=== PATIENT | male | born 1970 | race Caucasian/White ===

== ENCOUNTER 2017-12-29 12:33 | Emergency (ER) | payer OTHER, SELFPAY ==
[2017-12-29 12:42] VITALS: BP 149/97; PULSE 92; RESP 16; TEMP 36.9; O2SAT 96; BMI 24.4
--- NOTE | 2017-12-29 12:52 | RAD_ITS ---
STUDY: X-RAY CHEST REASON FOR EXAM: Male, 47 years old. Chest pain. TECHNIQUE: Single PA view of the chest. COMPARISON: None. FINDINGS: Hyperinflation. The lungs are clear. There is no demonstrated pleural abnormality. Normal size heart. Normal mediastinum and lashae. Normal visualized pulmonary arteries. Normal visualized aortic arch and descending thoracic aorta. Normal visualized thoracic spine. Normal visualized ribs, clavicles, and shoulders. There is no demonstrated abnormality of the visualized soft tissue structures of the upper abdomen. RAD/Chest 1 View (Portable) IMPRESSION: Normal x-ray examination of the chest. Electronically Signed: Vicente Pacheco MD at 13:06 EDT Tel [phone], Service support ,
--- NOTE | 2017-12-29 12:52 | EKG12_ITS ---
Test Reason : PALPS/CP Blood Pressure : / mmHG Vent. Rate : 092 BPM Atrial Rate : 092 BPM P-R Int : 136 ms QRS Dur : 086 ms QT Int : 340 ms P-R-T Axes : 078 073 067 degrees QTc Int : 420 ms Normal sinus rhythm Normal ECG Confirmed by PANCHO PHILLIPS, ANKUSH ([id number]), newspaper managing editor NANNETTE GRIJALVA ([id number]) on 01/02/2018 2:44:17 PM Referred By: IVELISSE/TRAVIS Confirmed By:ANKUSH DELEON MD
[2017-12-29 13:21] LABS: Absolute Lymphocyte Count 1.45 X10^3/ul (0.83-4.51); Absolute Neutrophil Count 4.7 X10^3/uL (2.0-7.7); Basophil# 0.03 X10^3/uL; Basophil% 0.4 % (0-1); Eosinophil# 0.13 X10^3/uL; Eosinophils% 1.9 % (0-5); Hematocrit 45.8 % (40-54); Hemoglobin 16.7 g/dl (13.0-16.5); Lymphocyte # 1.45 X10^3/ul (4.0); Lymphocyte % 20.7 % (19-41); Mean Corp Hgb Conc 36.5 g/gl (32-36); Mean Corpuscular Hgb 30.9 pg (27.0-32.0); Mean Corpuscular Volume 84.7 fL (80-94); Mean Platelet Vol. 9.7 fl (6.2-12.0); Monocyte# 0.71 X10^3/uL; Monocyte% 10.1 % (0-10); Neutrophil # 4.69 X10^3/uL (2.7-7.7); Neutrophil % 66.9 % (47-70); Platelet Count 226 K/mm3 (150-450); RBC Distribution Width CV 12.7 % (11.6-14.6); Red Blood Count 5.41 M/mm3 (4.6-6.2)
[2017-12-29 13:23] LABS: POSITIVE COUNT NO; POSITIVE DIFFERENTIAL NO; POSITIVE MORPHOLOGY NO
[2017-12-29 13:27] LABS: Anion Gap 7 (5-15); BUN 17 mg/dL (7-18); Calcium,Total 8.9 mg/dL (8.5-10.1); Chloride 104 mmol/L (98-107); Creatinine, Serum 1.21 mg/dL (0.70-1.30); EST Glomerular Filtration Rate 69 mL/min (>60); Est Glom Filt Rate - Afr Amer 83 mL/min (>60); Estimated Creatinine Clearance 83.73 ml/min; Glucose 133 mg/dL (74-106); Potassium 3.8 mmol/L (3.5-5.1); Sodium Level 138 mmol/L (136-145)
[2017-12-29 14:34] VITALS: BP 144/89; PULSE 80; RESP 18; O2SAT 95
--- NOTE | 2017-12-29 15:08 | EKG12_ITS ---
Test Reason : REPEAT Blood Pressure : / mmHG Vent. Rate : 080 BPM Atrial Rate : 080 BPM P-R Int : 140 ms QRS Dur : 088 ms QT Int : 368 ms P-R-T Axes : 071 067 053 degrees QTc Int : 424 ms Normal sinus rhythm Normal ECG Confirmed by PANCHO PHILLIPS, ANKUSH ([id number]), scientific editor NANNETTE GRIJALVA ([id number]) on 01/02/2018 2:44:46 PM Referred By: HERNAN Confirmed By:ANKUSH DELEON MD
--- NOTE | 2017-12-29 15:12 | NURSING ---
NO OLD EKGS
[2017-12-29 15:20] VITALS: BP 134/83; PULSE 79; RESP 14; O2SAT 95
--- NOTE | 2017-12-29 15:30 | ED.VISSUMM ---
- ER Visit Summary Date of Service: 12/29/17 Chief Complaint: Chest pain History of Present Illness: The patient is a 47 M presents to the emergency department with chest pain. Patient states that he has been struggling with postconcussive syndrome since June. He states that because of that, he will get headaches almost daily. He states that he was off work yesterday and went back today. He feels like he overdid it. He states that he began to have palpitations and felt as if his heart was racing. He states that he had some tightness in his central chest. He states this is a normal headache. He denies any fevers or chills. He denies any visual change. He has no history of cardiovascular disease. Physical Examination: Vital signs reviewed General: Well-nourished, well-developed Head: Normocephalic, atraumatic Eyes: Pupils equal and reactive, extraocular muscles intact Neck, supple, no lymphadenopathy Heart: Regular rate and rhythm Respiratory: No distress, clear bilaterally Abdomen: Soft, nontender, nondistended, no peritoneal signs Back: Nontender Extremities: Nontender, no edema, no cords Skin: Normal color no rash Neuro: Alert and oriented, no focal or lateralizing deficits Test Results: [] Emergency Department Course and Treatment: The patient presents with chest pain and palpitations. He does feel like this is all related to his postconcussive syndrome. Initial EKG shows no acute ischemic change. His initial cardiac enzymes were negative. The patient has a heart score of 1. He did agree to a repeat cardiac enzymes and repeat EKG. These are both unchanged. Patient was given fluids as he did not want any medication. He then agreed to Toradol. At this time, given his low heart score and 2 negative enzymes along with 2 unremarkable EKGs, I do feel that he is safe for further outpatient workup. The bulk of his symptoms were related to palpitations. The patient will be discharged to continue follow-up with both his neurologist and his primary care. Treatment Plan: [] Disposition: Discharge Impression: 1. Chest pain with palpitations 2. Headache-chronic This note was generated with [employer] software. It may contain incorrect words, spelling, and punctuation that were not noted in review of the chart prior to signing ED Disposition - Plan for ED Patient: Chief Complaint: Palpitations Instructions: ED Palpitations Referrals: Maxim Sanders DO [Primary Care Provider] -
[2017-12-29] MEDS: 0.9% Normal Saline 1,000 ML 999 ML IV (15:33)
[2017-12-29] MEDS: Ketorolac 30 MG/ML Syringe IV (16:21)
[2017-12-29 17:18] VITALS: BP 120/82; PULSE 65; RESP 14; O2SAT 95
== END 2017-12-29 17:19 | disposition home or self-care (01) ==
LOC: ED 15:37
PROVIDERS: Emergency Provider Emergency Medicine; Family Provider Family Medicine; PCP Family Medicine
DX: R07.9 Chest pain, unspecified (principal); R00.2 Palpitations; R51 Headache
CPT/HCPCS: 71045; 80048; 84484; 85025; 93005; 99285; J7030; A4216

== ENCOUNTER → 2018-07-31 10:52 | Outpatient (CLI) | payer OTHER, SELFPAY ==
--- NOTE | 2018-07-31 11:00 | MRI_ITS ---
STUDY: MRI BRAIN WITH AND WITHOUT CONTRAST REASON FOR EXAM: Male, 47 years old. HEADACHES, MULTIPLE CONCUSSIONS. TECHNIQUE: Standardized multiplanar fat and water weighted pulse sequences were obtained. 9 ml of Gadavist contrast material was administered intravenously for the contrast portion of the examination. COMPARISON: CT dated March 31, 2017 FINDINGS: Normal size of the ventricles and extra-axial spaces for the patient's age. Normal white matter tracts of the supratentorial brain. Normal bilateral basal ganglia. Normal thalami. There is no extra-axial fluid accumulation. Normal flow voids within the major intracranial circulation suggesting patency by spin echo criteria. Normal venous enhancement. There is no enhancing intra-axial or extra-axial abnormality. Normal sella turcica, pituitary gland, infundibular stalk, optic chiasm and hypothalamus. Normal tectal plate and pineal gland. Normal midbrain, eliot and medulla. Normal cerebellum. Normal basal cisterns. Normal bilateral temporal bones. Normal bilateral internal auditory canals. No demonstrated orbital abnormality, within the constraints of a routine brain study. There is mucoperiosteal inflammatory disease of the paranasal sinuses consistent with mild chronic sinusitis. MRI/Brain W/WO Contrast IMPRESSION: Unremarkable unenhanced and enhanced MRI of the brain. Electronically Signed: Nell Ortega MD at 11:54 EST Tel , Service support ,
== END ==
PROVIDERS: Family Provider Preventive Medicine Occupational Medicine; PCP Preventive Medicine Occupational Medicine; Referring Provider Psychiatry & Neurology Neurology; Visit Provider Psychiatry & Neurology Neurology
DX: R51 Headache (principal)
CPT/HCPCS: 70553; A9585

== ENCOUNTER 2025-05-16 07:16 | Emergency (ER) | payer OTHER, SELFPAY ==
[2025-05-16 07:17] VITALS: BP 118/84; PULSE 105; RESP 16; TEMP 36.9; O2SAT 99; BMI 31.6
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
[2025-05-16 07:58] LABS: Hematocrit 44.6 % (40-54); Hemoglobin 14.6 g/dL (13.0-16.5); Immature Granulocytes Count 0.070 X10^3/uL (0.0-0.0); Mean Corp Hgb Conc 32.7 g/dL (32-36); Mean Corpuscular Volume 79.8 fL (80-94); Mean Platelet Vol. 9.4 fl (6.2-12.0); NRBC Flagged by Analyzer 0 % (0-5); Platelet Count 326 K/mm3 (150-450); RBC Distribution Width CV 14.9 % (11.6-14.6); RBC Distribution Width SD 42.6 fl (35.1-43.9); Red Blood Count 5.59 M/mm3 (4.6-6.2); White Blood Count 7.0 K/mm3 (4.4-11.0)
--- NOTE | 2025-05-16 08:00 | CT_ITS ---
PROCEDURE: SPINE LUMBAR WITHOUT CONTRAST 05/16/2025 REASON FOR EXAM: TRAUMA TECHNIQUE: Procedure Code: CTSPL Modality: CT Procedure: SPINE LUMBAR WITHOUT CONTRAST Coronal and Sagittal reconstruction series were provided. One or more dose reduction techniques were used (e.g., Automated exposure control, adjustment of the mA and/or kV according to patient size, use of iterative reconstruction technique RADIATION DOSE SUMMARY: DLP: 7060 mGycm FINDINGS: The lumbar vertebral body height and alignment are maintained. There is a fracture partly visible in the left superior pubic ramus, image 156/156. There is a fracture through the right aspect of the sacrum, image 107-122/156. There is soft tissue swelling and hematoma visible at the left pubic ramus fracture, incompletely visualized. Atherosclerotic calcifications are visible. CT/Spine Lumbar without Contrast IMPRESSION: There is a fracture partly visible in the left superior pubic ramus, image 156/ 156. There is a fracture through the right aspect of the sacrum, image 107-122/156. There is soft tissue swelling and hematoma vi sible at the left pubic ramus fracture, incompletely visualized. Critical results were discussed with Dr. Browne by Dr. Rondon at the time of dictation. Reading Location: [facility]
--- NOTE | 2025-05-16 08:00 | CT_ITS ---
PROCEDURE: BRAIN/HEAD WITHOUT CONTRAST 05/16/2025 REASON FOR EXAM: TRAUMA TECHNIQUE: Procedure Code: CTBR Modality: CT Procedure: BRAIN/HEAD WITHOUT CONTRAST Coronal and Sagittal reconstruction series were provided. One or more dose reduction techniques were used (e.g., Automated exposure control, adjustment of the mA and/or kV according to patient size, use of iterative reconstruction technique. RADIATION DOSE SUMMARY: CTDlvol: 44.99 mGy DLP: 998.58 mGycm COMPARISON: None FINDINGS: Brain: Normal CSF Spaces: Normal Sinuses/Mastoids: Minimal mucosal thickening at the base of the right maxillary sinus. Bones: No bony abnormality is seen. CT/Brain/Head without Contrast IMPRESSION: NO ACUTE FINDINGS Reading Location: [id number]
--- NOTE | 2025-05-16 08:00 | CT_ITS ---
PROCEDURE: SPINE THORACIC WITHOUT CONTRAS 05/16/2025 REASON FOR EXAM: TRAUMA TECHNIQUE: Procedure Code: CTSPTH Modality: CT Procedure: SPINE THORACIC WITHOUT CONTRAS Coronal and Sagittal reconstruction series were provided. One or more dose reduction techniques were used (e.g., Automated exposure control, adjustment of the mA and/or kV according to patient size, use of iterative reconstruction technique). RADIATION DOSE SUMMARY: DLP: 7060 mGycm COMPARISON: None FINDINGS: Alignment: There is no spondylolisthesis. Dextroscoliosis is noted in the midthoracic region. Bones: There is no fracture. Soft Tissues: A 1.3 by 0.7 cm fat density lesion is partly visible at the posterior margin of the right 10th rib, image 106/151. Atelectasis or scar is noted in the dependent portion of the right and left lung. Other: There is a 0.8 cm irregular nodular density in the left lung base, image 113/151. atherosclerotic calcifications are visible. CT/Spine Thoracic without Contras IMPRESSION: There is no visible acute traumatic injury in the thoracic spine. A 1.3 by 0.7 cm fat density lesion is partly visible at the posterior margin of the right 10th rib, image 106/151. There is a 0.8 cm irregular nodular density in the left lung base, image 113/15 1. follow-up is recommended. Reading Location: [facility]
--- NOTE | 2025-05-16 08:00 | CT_ITS ---
PROCEDURE: SPINE CERVICAL WITHOUT CONTRAS 05/16/2025 REASON FOR EXAM: TRAUMA TECHNIQUE: Procedure Code: CTSPC Modality: CT Procedure: SPINE CERVICAL WITHOUT CONTRAS Coronal and Sagittal reconstruction series were provided. One or more dose reduction techniques were used (e.g., Automated exposure control, adjustment of the mA and/or kV according to patient size, use of iterative reconstruction technique. RADIATION DOSE SUMMARY: CTDlvol: 34.69 mGy DLP: 1450.18 mGycm COMPARISON: None FINDINGS: Alignment: Straightening of the normal cervical lordosis. Vertebrae: Spondylosis at the C5-C6 level Soft Tissues: No prevertebral soft tissue swelling. Other: C1-2: Unremarkable C2-3: Unremarkable C3-4: Unremarkable C4-5: Unremarkable C5-6: Moderate degree of disc space narrowing in the posterior spondylosis. Central canal stenosis due to the spondylosis. C6-7: Unremarkable C7-T1: Unremarkable CT/Spine Cervical without Contras IMPRESSION: Disc space narrowing and spondylosis at the C5-C6 level causing mild degree of central canal stenosis. Reading Location: [id number]
[2025-05-16 08:16] VITALS: BP 128/87; PULSE 90; RESP 20; O2SAT 98
--- NOTE | 2025-05-16 08:20 | RAD_ITS ---
PROCEDURE: WRIST MIN 3 VIEWS 05/16/2025 REASON FOR EXAM: TRAUMA TECHNIQUE: Procedure Code: RADWR Modality: DX Procedure: WRIST MIN 3 VIEWS Right wrist three views COMPARISON: None FINDINGS: There is a comminuted fracture of the distal radius and ulna with components extending into the distal radioulnar joint, and to the radiocarpal articulation, with impaction and overriding. The dorsal fracture components extend to 0.8 cm from the skin surface. RAD/Wrist min 3 Views IMPRESSION: There is a comminuted fracture of the distal radius and ulna with components ex tending into the distal radioulnar joint, and to the radiocarpal articulation, with impaction and overriding. The dorsal fracture components extend to 0.8 cm from the skin surface. Reading Location: [facility]
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
--- NOTE | 2025-05-16 08:20 | RAD_ITS ---
PROCEDURE: ELBOW 2 VIEWS 05/16/2025 REASON FOR EXAM: TRAUMA TECHNIQUE: Procedure Code: RADEL2 Modality: DX Procedure: ELBOW 2 VIEWS Right elbow 2 views COMPARISON: None FINDINGS: There is no fracture or dislocation identified. Joint spaces are maintained. There is no visible effusion. RAD/Elbow 2 Views IMPRESSION: No fracture or dislocation is identified. Reading Location: [id number]
--- NOTE | 2025-05-16 08:20 | RAD_ITS ---
PROCEDURE: PELVIS 1 OR 2 VIEWS 05/16/2025 REASON FOR EXAM: TRAUMA TECHNIQUE: Procedure Code: RADPEL Modality: DX Procedure: PELVIS 1 OR 2 VIEWS FINDINGS: Mildly displaced fractures of the left superior inferior pubic rami are noted. Contrast material is seen within the urinary bladder, without appreciable extravasation. No dislocation. RAD/Pelvis 1 or 2 Views IMPRESSION: As above. Reading Location: [id number]
[2025-05-16 08:28] LABS: Anion Gap 9 (5-15); BUN 20 mg/dL (4-19); BUN/Creat Ratio 15.4 RATIO (10-20); Calcium,Total 9.0 mg/dL (7.6-11.0); Carbon Dioxide 26.5 mmol/L (21.0-32.0); Chloride 102 mmol/L (98-108); Estimated Creatinine Clearance 81.95 ml/min (50-250); Glucose 174 mg/dL (70-99); Potassium 4.5 mmol/L (3.3-5.1)
[2025-05-16 08:29] LABS: Alcohol, Blood (Medical)-Serum < 10.1 mg/dL (<=10.0)
[2025-05-16 09:00] VITALS: BP 104/77; PULSE 92; RESP 18; O2SAT 97
[2025-05-16] MEDS: fentaNYL 100 MCG/2 ML Ampul 50 MCG IV (09:33)
[2025-05-16 10:00] VITALS: BP 102/68; PULSE 88; RESP 16; O2SAT 97
[2025-05-16 10:19] VITALS: BP 102/68; PULSE 88; RESP 18; TEMP 36.8; O2SAT 99
== END 2025-05-16 10:20 | disposition short-term general hospital (02) ==
PROVIDERS: Emergency Provider Emergency Medicine; PCP Preventive Medicine Occupational Medicine; Visit Provider Emergency Medicine
DX: S32.512A Fracture of superior rim of left pubis, initial encounter for closed fracture (principal); S32.10XA Unspecified fracture of sacrum, initial encounter for closed fracture; S32.511A Fracture of superior rim of right pubis, initial encounter for closed fracture; S52.501A Unspecified fracture of the lower end of right radius, initial encounter for closed fracture; V23.49XA Other motorcycle driver injured in collision with car, pick-up truck or van in traffic accident, initial encounter
CPT/HCPCS: 70450; 71045; 71260; 72125; 72128; 72131; 72170; 73030; 73070; 73110; 74177; 80048; 82077; 85025; 93005; 96374; 96375; 99285; Q9967; A4216; J2405